=== PATIENT | female | born 1955 | race African-American/Black ===

== ENCOUNTER 2017-12-08 09:45 | Emergency (ER) | payer MEDICARE, OTHER, SELFPAY ==
[2017-12-08 10:49] LABS: ALT (SGPT) 16 U/L (8-55); AST (SGOT) 16 U/L (5-34); Albumin 3.9 g/dL (3.4-4.8); Alkaline Phosphatase 105 U/L (40-150); Anion Gap 14 mmol/L (10-20); BUN (Urea Nitrogen) 16 mg/dL (9.8-20.1); Bilirubin, Total 0.5 mg/dL (0.2-1.2); Calc. Creatinine Clearance 0 mL/min (70-130); Calcium 10.1 mg/dL (7.8-10.44); Carbon Dioxide 23 mmol/L (23-31); Chloride 110 mmol/L (98-107); Estimated GFR-MDRD 42; Globulin 3.4 g/dL (2.4-3.5); Glucose 99 mg/dL (80-115); Potassium 4.3 mmol/L (3.5-5.1); Protein, Total 7.3 g/dL (6.0-8.3); Sodium 143 mmol/L (136-145)
[2017-12-08 10:51] LABS: CKMB 1.1 ng/mL (0-6.6); Troponin I 0.015 ng/mL (< 0.028)
[2017-12-08 10:56] LABS: #Basophils 0.1 thou/uL (0.0-0.2); #Lymphocytes 1.6 thou/uL (1.20-3.40); #Monocytes 0.5 thou/uL (0.11-0.59); #Neutrophils 5.3 thou/uL (1.40-6.50); %Basophils 1.1 % (0.0-1.0); %Eosinophils 0.7 % (0.0-10.0); %Lymphocytes 21.2 % (21.0-51.0); %Monocytes 6.8 % (0.0-10.0); %Neutrophils 70.3 % (42.0-75.0); Hemoglobin 10.1 g/dL (12.0-16.0); MDiff Complete? YES; Mean Corpuscular HGB CONC 28.8 g/dL (32.0-36.0); Mean Corpuscular Hemoglobin 19.6 pg (27.0-31.0); Mean Corpuscular Volume 67.9 fL (78.0-98.0); Mean Platelet Volume 7.2 fL (7.4-10.4); Platelet Count 418 thou/uL (130-400); RBC Distribution Width 16.3 % (11.5-14.5); Red Blood Cell (RBC) Count 5.17 mill/uL (4.20-5.40); White Blood Cell (WBC) Count 7.5 thou/uL (4.8-10.8)
[2017-12-08 10:57] LABS: Anisocytosis SLIGHT = 6-15 cells (100X) (0-5/hpf); Eosinophils 2 % (0-10); Hypochromia SLIGHT = 6-15 cells (100X) (0-5/hpf); Lymphocytes 26 % (21-51); Microcytosis SLIGHT = 6-15 cells (100X) (0-5/hpf); Monocytes 7 % (0-10); Neutrophil 65 % (42-75); PLT Morphology Comment Appears Adequate
--- NOTE | 2017-12-08 11:07 | RAD ---
CHEST TWO VIEWS: HISTORY: Hypertension. COMPARISON: Radiograph from 2010. FINDINGS: The patient is rotated to the left, giving a lucency along the left heart border and left lung base, which is all likely artifactual. No pneumothorax or effusion. No focal air space consolidation. No acute osseous abnormality. IMPRESSION: No acute intrathoracic abnormality. POS: [facility]
[2017-12-08] MEDS ORDERED: Enalaprilat Dihydrate 1.25 MG/ML VIAL ONE (11:49)
--- NOTE | 2017-12-08 14:28 | CT ---
HEAD CT SCAN WITHOUT IV CONTRAST: Date: 12/08/17 HISTORY: 62-year-old female with history of hypertension and left leg weakness for 6 months. History of prior stroke. FINDINGS: There is some minimal patchy low attenuation change involving the right frontal and parietal cortical region in the paracentral area, as well as left frontal and right frontal focal encephalomalacic lucero nges. No overt mass or midline shift. No intra or extra-axial hemorrhage. IMPRESSION: Scattered bilateral areas of encephalomalacia. Evidence for bilateral old infarct changes. No mass or bleed, or other acute process. These areas of abnormal low attenuation are new from the prior 2006 s tudy. No mass or bleed. If there is concern for acute infarct, a follow-up nonemergent MRI study is suggested for further ass essment. POS: [facility]
== END 2017-12-08 13:48 | disposition short-term general hospital (02) ==
LOC: NAV ERS 09:45
DX: I16.0 Hypertensive urgency (principal); Z86.73 Personal history of transient ischemic attack (TIA), and cerebral infarction without residual deficits; I10 Essential (primary) hypertension
CPT/HCPCS: 36415; 70450; 71046; 80053; 82553; 83880; 84484; 85025; 93005; 94760; 96374; 96375